=== PATIENT | male | born 1955 | race American Indian/Alaskan Native ===

== ENCOUNTER 2017-09-06 09:55 | Emergency (ER) | payer OTHER ==
[2017-09-06 10:09] VITALS: BMI 25.8
--- NOTE | 2017-09-06 11:13 | PDOC ---
History of Present Illness - General Chief Complaint: Wound Stated Complaint: CHEMICAL EXPOSURE Time Seen by Provider: 09/06/17 10:54 History Source: Patient Exam Limitations: No Limitations - History of Present Illness Initial Comments: This is a 61 YOM who is right hand dominant and with h/o NIDDM, HTN, and HLD who p/w left index finger large blister and diffuse swelling/warmth worsening since a work-related pressurized Freeon chemical exposure at work 3 days ago. The patient described opening a pressurized cannister of Freeon when the chemical came out rapidly and went through his work glove onto the left index finger (and a small amount to the right index finger). He denies tearing of the gloves or skin lacerations, but notes a subsequent mild chemical burn to the dorsal side of his left index finger immediately after the incident. He saw his PCP Dr. Huang on and was prescribed Augmentin PO and Silver Sulfadiazine topical, which he has been using compliantly. He notes mild central chest discomfort and mild mid-back pain, but denies any fever, chills, nausea, vomiting, diarrhea, constipation, additional rashes or skin changes, headache, vision changes, dizziness, etc. Past History - Past Medical History Allergies/Adverse Reactions: Allergies Allergy/AdvReac Type Severity Reaction Status Date / Time No Known Allergies Allergy Verified 09/06/17 10:08 Home Medications: Ambulatory Orders Glipizide [Glipizide ER] 10 mg PO DAILY 04/24/15 Losartan Potassium [Cozaar -] 25 mg PO DAILY 04/24/15 Metformin HCl [Metformin HCl ER] 500 mg PO DAILY 04/24/15 Pantoprazole Sodium [Protonix] 40 mg PO DAILY 04/24/15 Simvastatin [Zocor -] 20 mg PO HS 04/24/15 COPD: No Diabetes: Yes Hypercholesterolemia: Yes - Suicide/Smoking/Psychosocial Hx Smoking History: Never smoked Hx Alcohol Use: No Drug/Substance Use Hx: No Substance Use Type: None *Physical Exam - Vital Signs Last Vital Signs Temp Pulse Resp BP Pulse Ox 98 F 89 18 155/90 99 09/06/17 10:05 09/06/17 10:05 09/06/17 10:05 09/06/17 10:09/06/17 10:05 - Physical Exam General Appearance: Yes: Nourished, Appropriately Dressed, Other (well appearing and nontoxic adult male, answering questions appropriately, son aids in translation). No: Apparent Distress HEENT: positive: EOMI, FARTUN, Normal ENT Inspection, Normal Voice, Hearing Grossly Normal. negative: Scleral Icterus (R), Scleral Icterus (L), Nasal Congestion Neck: positive: Trachea midline, Supple. negative: Tender, Rigid Respiratory/Chest: positive: Lungs Clear, Normal Breath Sounds. negative: Respiratory Distress, Crackles, Rhonchi, Stridor, Wheezing Cardiovascular: positive: Regular Rhythm, Regular Rate, S1, S2. negative: Edema , JVD, Murmur Gastrointestinal/Abdominal: positive: Normal Bowel Sounds, Flat, Soft. negative : Tender, Organomegaly, Pulsatile Mass, Guarding Musculoskeletal: positive: Normal Inspection. negative: Decreased Range of Motion, Vertebral Tenderness Extremity: positive: Normal Capillary Refill, Normal Inspection, Normal Range of Motion. negative: Tender, Cyanosis Integumentary: positive: Normal Color, Dry, Warm, Other (Left index finger very large tense fluid-filled bulla with small amount of drainage from cracks to interdigital space, distal good cap refill and sensation/motor intact). negative: Erythema, Rash, Bruising Neurologic: positive: prototyper II-XII NML intact (grossly), Fully Oriented, Alert, Normal Mood/Affect, Normal Response, Motor Strength 5/5 ED Treatment Course - LABORATORY CBC & Chemistry Diagram: 09/06/17 12:25 09/06/17 12:25 Medical Decision Making - Medical Decision Making Adult patient p/w left non-dominant hand index finger large blister s/p pressurized Freeon exposure 3 days ago. Initial Vital Signs Temp Pulse Resp BP Pulse Ox 98 F 89 18 155/90 99 09/06/17 10:05 09/06/17 10:05 09/06/17 10:05 09/06/17 10:05 09/06/17 10:05 Exam: Left index finger very large tense fluid-filled bulla with small amount of drainage from cracks to interdigital space, distal good cap refill and sensation/motor intact. DDX IBNLT: contact dermatitis, deeper space chemical injury (e.g. from hydrofluoric acid), synovitis, tenosynovitis, other deep space hand infection, necrotizing infection, etc. There is concern for the fact that often Freeon has additive chemicals such as hydrofluoric acid. W/U ordered: CBCD CMP Mg Phos PT/INR PTT Type & Screen Cardiac panel CXR EXR TX ordered: None EKG: CXR: Labs: CT: Repeat VS: Reassessment: ADMIT The Pt is unsafe for discharge at this time. They require further hospital observation, workup, and treatment. Microblog sent to [facility] for admission. Spoke with [facility], in agreement Pt to be admitted to Decision to Admit order placed to [facility] covering attending *DC/Admit/Observation/Transfer Diagnosis at time of Disposition: Chemical burn - Discharge Dispostion Condition at time of disposition: Guarded - Referrals Referrals: Lui Huang MD [Primary Care Provider] - - Patient Instructions - Post Discharge Activity - Transfer to Acute Care Facility Receiving Facility: [facility] Accepting Physician:: Dr. Bonner
[2017-09-06 12:47] LABS: BASO % 0.9 % (0-2.0); EOS % 0.9 % (0-4.5); HEMATOCRIT 50.3 % (35.4-49); HEMOGLOBIN 17.2 GM/dL (11.7-16.9); LYMPH % 23.6 % (8-40); MCH 28.7 pg (25.7-33.7); MCHC 34.2 g/dl (32.0-35.9); MEAN CELL VOLUME 84.1 fl (80-96); MEAN PLT VOLUME 9.7 fl (7.5-11.1); MONO % 6.6 % (3.8-10.2); PLATELET COUNT 243 K/MM3 (134-434); RBC 5.98 M/mm3 (4.00-5.60); RDW 13.4 % (11.9-15.9); WHITE BLOOD COUNT 10.1 K/mm3 (4.0-10.0)
[2017-09-06 13:05] LABS: ALBUMIN 4.2 g/dl (3.4-5.0); ANION GAP 7 (8-16); BLOOD UREA NITROGEN 20 mg/dL (7-18); CALCIUM 9.3 mg/dL (8.5-10.1); CHLORIDE 102 mmol/L (98-107); CO2 28 mmol/L (21-32); GLUCOSE,RANDOM 214 mg/dL (74-106); MAGNESIUM 2.1 mg/dL (1.8-2.4); PHOSPHOROUS 3.8 mg/dL (2.5-4.9); POTASSIUM 4.7 mmol/L (3.5-5.1); SGOT/AST 16 U/L (15-37); SGPT/ALT 34 U/L (12-78); SODIUM 137 mmol/L (136-145)
[2017-09-06 13:09] LABS: ALK PHOS 69 U/L (45-117); BILIRUBIN,TOTAL 0.5 mg/dL (0.2-1.0); TOT PROT 8.3 g/dl (6.4-8.2)
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
[2017-09-06 13:18] LABS: INR 0.97 (0.82-1.09)
[2017-09-06 13:20] LABS: ACTIVATED PTT 31.5 SECONDS (25.2-36.5)
[2017-09-06 15:06] VITALS: BP 126/82; PULSE 79; TEMP 97.7
--- NOTE | 2017-09-06 17:44 | EKG ---
Test Reason : Blood Pressure : / mmHG Vent. Rate : 076 BPM Atrial Rate : 076 BPM P-R Int : 134 ms QRS Dur : 158 ms QT Int : 430 ms P-R-T Axes : 013 112 019 degrees QTc Int : 483 ms NORMAL SINUS RHYTHM RIGHT BUNDLE BRANCH BLOCK LEFT POSTERIOR FASCICULAR BLOCK BIFASCICULAR BLOCK POSSIBLE INFERIOR INFARCT , AGE UNDETERMINED ABNORMAL ECG WHEN COMPARED WITH ECG OF 24-APR-2015 13:09, (RBBB AND LEFT POSTERIOR FASCICULAR BLOCK) IS NOW PRESENT Confirmed by DARVIN AHN, KALPANA ([id number]) on 09/06/2017 5:44:20 PM Referred By: Confirmed By:KALPANA BOSTON MD
== END 2017-09-06 16:30 | disposition short-term general hospital (02) ==
LOC: JER 09:55
DX: T53.5X1A Toxic effect of chlorofluorocarbons, accidental (unintentional), initial encounter (principal); T23.622A Corrosion of second degree of single left finger (nail) except thumb, initial encounter; Y93.89 Activity, other specified; Y92.69 Other specified industrial and construction area as the place of occurrence of the external cause; Y99.0 Civilian activity done for income or pay; I10 Essential (primary) hypertension; E78.00 Pure hypercholesterolemia, unspecified; E11.9 Type 2 diabetes mellitus without complications; Z79.84 Long term (current) use of oral hypoglycemic drugs
CPT/HCPCS: 36415; 71046-TC-FY; 73130-TC-LR-FY; 73140-TC-LT-FY; 80053; 82550; 83735; 84100; 84484; 85025; 85610; 85730; 86850; 86900; 86901; 93005; 93010; 99282-25

== ENCOUNTER 2018-01-08 11:01 | Observation (INO) | payer OTHER ==
[2018-01-08 11:12] VITALS: BMI 27.3
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
[2018-01-08 12:59] LABS: BASO % 0.7 % (0-2.0); EOS % 1.7 % (0-4.5); HEMATOCRIT 49.9 % (35.4-49); HEMOGLOBIN 16.7 GM/dL (11.7-16.9); LYMPH % 27.5 % (8-40); MCH 28.5 pg (25.7-33.7); MCHC 33.4 g/dl (32.0-35.9); MEAN CELL VOLUME 85.2 fl (80-96); MEAN PLT VOLUME 9.3 fl (7.5-11.1); MONO % 6.7 % (3.8-10.2); NEUT % 63.4 % (42.8-82.8); PLATELET COUNT 243 K/MM3 (134-434); RBC 5.86 M/mm3 (4.00-5.60); RDW 13.3 % (11.9-15.9); WHITE BLOOD COUNT 8.6 K/mm3 (4.0-10.0)
[2018-01-08 13:34] LABS: ALBUMIN 4.3 g/dl (3.4-5.0); ALK PHOS 69 U/L (45-117); ANION GAP 4 MMOL/L (8-16); BILIRUBIN,TOTAL 0.4 mg/dL (0.2-1); BLOOD UREA NITROGEN 14 mg/dL (7-18); CALCIUM 9.3 mg/dL (8.5-10.1); CHLORIDE 105 mmol/L (98-107); CO2 31 mmol/L (21-32); GLUCOSE,RANDOM 172 mg/dL (74-106); MAGNESIUM 2.4 mg/dL (1.8-2.4); N-TERMINAL BNP < 5.0 pg/ml (5-125); POTASSIUM 4.9 mmol/L (3.5-5.1); SGOT/AST 11 U/L (15-37); SGPT/ALT 27 U/L (13-61); SODIUM 140 mmol/L (136-145); TOT PROT 8.1 g/dl (6.4-8.2)
--- NOTE | 2018-01-08 15:37 | EKG ---
Test Reason : Blood Pressure : / mmHG Vent. Rate : 081 BPM Atrial Rate : 081 BPM P-R Int : 156 ms QRS Dur : 140 ms QT Int : 402 ms P-R-T Axes : 049 126 048 degrees QTc Int : 466 ms POOR DATA QUALITY, INTERPRETATION MAY BE ADVERSELY AFFECTED NORMAL SINUS RHYTHM RIGHT BUNDLE BRANCH BLOCK LEFT POSTERIOR FASCICULAR BLOCK BIFASCICULAR BLOCK CANNOT RULE OUT INFERIOR INFARCT (CITED ON OR BEFORE 06-SEP-2017) ABNORMAL ECG WHEN COMPARED WITH ECG OF 06-SEP-2017 13:41, QUESTIONABLE CHANGE IN INITIAL FORCES OF INFERIOR LEADS T WAVE INVERSION NO LONGER EVIDENT IN INFERIOR LEADS Confirmed by HANSEL MI MD ([id number]) on 01/08/2018 3:36:59 PM Referred By: Confirmed By:HANSEL MI MD
[2018-01-08] MEDS ORDERED: ASPIRIN 325 MG TABLET PO ONE (16:30)
[2018-01-08] MEDS ORDERED: ASPIRIN 325 MG ENTERIC COATED TABLET (FP) ONE (16:37)
--- NOTE | 2018-01-08 18:25 | PN ---
Teaching Attending Note Name of Resident: Margarita Olson ATTENDING PHYSICIAN STATEMENT I saw and evaluated the patient. I reviewed the resident's note and discussed the case with the resident. I agree with the resident's findings and plan as documented with exceptions below. SUBJECTIVE: 62 yom with PMhx of HTN, HLD, NIDDM, exsmoker comes with intermittent shortness of breath for last 2 weeks, non exertional with no clear exacerbating or relieving factors. patient attributes to the change in the season. On repeat questioning, denies any chest pressure, arm or jaw pain, diaphoresis, dizziness , exertional symptoms. States has seen Dr. Pope in the past with reportedly normal stress test 2 years ago. 12 point ROS done, neg for fevers, chills, cough, exertional chest pain, abdominal or urinary symptoms. OBJECTIVE: Vital Signs Period Temp Pulse Resp BP Sys/Sue Pulse Ox Last 24 Hr 98.0 F 74-75 18-18 126-146/78-89 98-98 Intake & Output 01/05/18 01/06/18 01/07/18 01/08/18 23:59 23:59 23:59 23:59 Weight 180 lb GENERAL: Awake, alert, and fully oriented, in no acute distress. HEAD: Normal with no signs of trauma. EYES: Pupils equal, round and reactive to light, extraocular movements intact, sclera anicteric, conjunctiva clear. No lid lag. EARS, NOSE, THROAT: Ears normal, nares patent, oropharynx clear without exudates. Moist mucous membranes. NECK: Soft, supple, no JVD, normal ROM LUNGS: Breath sounds equal, clear to auscultation bilaterally. No wheezes, and no crackles. No accessory muscle use. HEART: S1S2 regular,unable to appreciate any murmurs, rubs or gallops ABDOMEN: Soft, nontender, not distended, normoactive bowel sounds, no guarding, no rebound, no masses. No hepatomegaly or splenomegaly. MUSCULOSKELETAL: Normal range of motion at all joints. No bony deformities or tenderness. No CVA tenderness. UPPER EXTREMITIES: 2+ pulses, warm, well-perfused. No cyanosis. No clubbing. No peripheral edema. LOWER EXTREMITIES: 2+ pulses, warm, well-perfused. No calf tenderness. No peripheral edema. NEUROLOGICAL: Cranial nerves II-XII intact. Normal speech. Normal gait. power 5 /5, facial symmetry, EOMI, PERRL PSYCHIATRIC: Cooperative. Good eye contact. Appropriate mood and affect. SKIN: Warm, dry, normal turgor, no rashes or lesions noted, normal capillary refill. Home Medications Medication Instructions Recorded Glipizide [Glipizide ER] 10 mg PO DAILY 04/24/15 Losartan Potassium [Cozaar -] 25 mg PO DAILY 04/24/15 Simvastatin [Zocor -] 20 mg PO HS 04/24/15 Canagliflozin [Invokana] 100 mg PO DAILY 01/08/18 Famotidine 20 mg PO DAILY 01/08/18 metFORMIN HCL [Metformin HCl] 500 mg PO DAILY 01/08/18 Laboratory Results - last 24 hr 01/08/18 01/08/18 01/08/18 12:40 12:40 12:40 WBC 8.6 RBC 5.86 H Hgb 16.7 Hct 49.9 H MCV 85.2 MCH 28.5 MCHC 33.4 RDW 13.3 Plt Count 243 MPV 9.3 Absolute Neuts (auto) 5.4 Neutrophils % 63.4 Lymphocytes % 27.5 Monocytes % 6.7 Eosinophils % 1.7 D Basophils % 0.7 Nucleated RBC % 0 D-Dimer < 200 Sodium 140 Potassium 4.9 Chloride 105 Carbon Dioxide 31 Anion Gap 4 L BUN 14 Creatinine 1.0 Creat Clearance w eGFR > 60 Random Glucose 172 H Calcium 9.3 Magnesium 2.4 Total Bilirubin 0.4 AST 11 L ALT 27 Alkaline Phosphatase 69 Troponin I < 0.02 B-Natriuretic Peptide < 5.0 L Total Protein 8.1 Albumin 4.3 01/08/18 16:44 WBC RBC Hgb Hct MCV MCH MCHC RDW Plt Count MPV Absolute Neuts (auto) Neutrophils % Lymphocytes % Monocytes % Eosinophils % Basophils % Nucleated RBC % D-Dimer Sodium Potassium Chloride Carbon Dioxide Anion Gap BUN Creatinine Creat Clearance w eGFR Random Glucose Calcium Magnesium Total Bilirubin AST ALT Alkaline Phosphatase Troponin I < 0.02 B-Natriuretic Peptide Total Protein Albumin CXR - no active pulmonary disease EKG NSR, RBBB, LAFB, unchanged from prior EKG ASSESSMENT AND PLAN: 62 yom with PMHx as above here with intermittent dyspnea for last 2 weeks -Intermittent dyspnea, ?anginal equivalent vs seasonal allergies with mild bronchitis, no clear evidence of infectious process -NIDDM -HTN -HLD -Exsmoker Plan: No clear evidence of infection or pulmonary process. Given risk factors, symptoms, could very well suggest anginal equivalent. Telemetry, cycle troponins. Start ASA 81 mg daily.Check lipid panel. Continue losartan/statin. Cardiology consult Dr. Pope. 2d echo/stress test. Hold metformin. ISS, diabetic diet. DVTPPX lovenox dispo pending cardiac w/u. Plan discussed with patient in detail, all questions answered. total admit time 55 min.
[2018-01-08] MEDS ORDERED: ALBUTEROL SO4 8 GM HFA INHALER IH PRN (18:34)
--- NOTE | 2018-01-08 20:31 | CON.CARD ---
Consult Consult Specialty:: cardiology Reason for Consultation:: chest discomfort; multiple cardiac risks - History of Present Illness Chief Complaint: chest pressure; SOB History of Present Illness: 62-year-old male with a history of [id number]-[id number] diabetes, hyperlipidemia, hypertension, gastric reflux presents to the emergency Department with 2 weeks of progressive sternal non radiating pressure like pain worse in the mornings. Patient reports discomfort that wakes him up from sleep at 4 or 5 AM, lasts for a few hours and gets better on its own. Due to the persistence of the pain, patient called his primary doctor who advised him to come to the ED. Pt reports associated SOB. Denies diaphoresis, N/V/D, rashes, trauma. Denies dizziness, focal weakness/numbness, abd pain, urinary sxs. 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 No hx smoking. - History Source History Provided By: Medical Record - Past Medical History Cardio/Vascular: Yes: HTN - Alcohol/Substance Use Hx Alcohol Use: No - Smoking History Smoking history: Never smoked Home Medications - Allergies Allergies/Adverse Reactions: Allergies Allergy/AdvReac Type Severity Reaction Status Date / Time No Known Allergies Allergy Verified 01/08/18 11:06 - Home Medications Home Medications: Ambulatory Orders Glipizide [Glipizide ER] 10 mg PO DAILY 04/24/15 Losartan Potassium [Cozaar -] 25 mg PO DAILY 04/24/15 Simvastatin [Zocor -] 20 mg PO HS 04/24/15 Canagliflozin [Invokana] 100 mg PO DAILY 01/08/18 Famotidine 20 mg PO DAILY 01/08/18 metFORMIN HCL [Metformin HCl] 500 mg PO DAILY 01/08/18 Review of Systems - Review of Systems Constitutional: reports: No Symptoms Eyes: reports: No Symptoms HENT: reports: No Symptoms Neck: reports: No Symptoms Cardiovascular: reports: Chest Pain, Shortness of Breath Respiratory: reports: SOB Gastrointestinal: reports: No Symptoms Genitourinary: reports: No Symptoms Breasts: reports: No Symptoms Reported Musculoskeletal: reports: No Symptoms Integumentary: reports: No Symptoms Neurological: reports: No Symptoms Endocrine: reports: No Symptoms Hematology/Lymphatic: reports: No Symptoms Psychiatric: reports: No Symptoms Vital Signs: Vital Signs Temperature 98.3 F 01/08/18 16:00 Pulse Rate 68 01/08/18 16:00 Respiratory Rate 17 01/08/18 16:00 Blood Pressure 119/76 01/08/18 16:00 O2 Sat by Pulse Oximetry (%) 100 01/08/18 16:00 - Other Data Labs, Other Data: CBC, BMP 01/08/18 12:40 01/08/18 12:40 Troponin, BNP 01/08/18 01/08/18 12:40 16:44 Troponin I < 0.02 < 0.02 B-Natriuretic Peptide < 5.0 L Troponin, BNP 01/08/18 01/08/18 12:40 16:44 Troponin I < 0.02 < 0.02 B-Natriuretic Peptide < 5.0 L Imaging - Results EKG: Image Reviewed (NSR; RBBB; LAFB: bifascicular block) Problem List - Problems (1) Chest pressure Assessment/Plan: TNI <0.02; f/u serially. EKG: NSR; bifascicular block. ECHO for LVEF, wall motion and thickness, valve status. TSH; lipid profile. Stress MIBI. Code(s): R07.89 - OTHER CHEST PAIN (2) HTN (hypertension) Assessment/Plan: f/u BP serially. Code(s): I10 - ESSENTIAL (PRIMARY) HYPERTENSION (3) Bifascicular block Code(s): I45.2 - BIFASCICULAR BLOCK
--- NOTE | 2018-01-08 20:41 | HP ---
CHIEF COMPLAINT: Chest Pain PCP: Dr. Huang HISTORY OF PRESENT ILLNESS: 62 y/o M with PMHx of NIDDM, HTN, HLD, GERD presents to [facility] with 2 week hx of Chest tightness. patient says he has been waking up many mornings with chest tightness over his entire chest. The chest tightness last for many hours, does not travel to his neck/arm/back, is not reproducible, but does relieve on its own and with changes in position. Patient today called his PCP after an episode of chest pain and was advised to visit the ED. The chest pain is accompanied by SOB. He has not tried any medications to relieve it. He additionally complains of Coughing that he attributes to the weather change. He is unable to identify any other triggers and says its not related to exertion. Patient denies any recent trauma or rashes to the area. Denies any hx of Asthma , COPD or any pulmonary disease. Denies any recent trauma, medication changes, decreased PO intake, decreased urine output or sick contacts. Denies any fevers, chills, nausea vomiting, diarrhea, constipation. 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, [employer] Family History: Mother: HTN, Stroke Father: BPH Allergies No Known Allergies Allergy (Verified 01/08/18 11:06) HOME MEDICATIONS: Home Medications Medication Instructions Recorded Glipizide [Glipizide ER] 10 mg PO DAILY 04/24/15 Losartan Potassium [Cozaar -] 25 mg PO DAILY 04/24/15 Simvastatin [Zocor -] 20 mg PO HS 04/24/15 Canagliflozin [Invokana] 100 mg PO DAILY 01/08/18 Famotidine 20 mg PO DAILY 01/08/18 metFORMIN HCL [Metformin HCl] 500 mg PO DAILY 01/08/18 REVIEW OF SYSTEMS As per HPI PHYSICAL EXAMINATION Vital Signs - 24 hr 01/08/18 01/08/18 01/08/18 11:06 13:49 16:00 Temperature 98.0 F 98.3 F Pulse Rate 74 Pulse Rate [ 75 68 Apical] Respiratory 18 18 17 Rate Blood Pressure 146/89 Blood Pressure 126/78 119/76 [Right Arm] O2 Sat by Pulse 98 98 100 Oximetry (%) GENERAL: A&Ox3, NAD HEAD: NCAT EYES: PERRL, EOMI EARS, NOSE, THROAT: Oropharynx clear without exudates. Moist mucous membranes. NECK: Normal ROM, No JVD LUNGS: Breath sounds equal, clear to auscultation bilaterally. No wheezes HEART: Regular rate and rhythm, normal S1 and S2 without murmur ABDOMEN: Soft, nontender, not distended, + bowel sounds, no guarding MUSCULOSKELETAL: No CVA tenderness. EXTREMITIES: 2+ pulses, No calf tenderness. No peripheral edema. NEUROLOGICAL: Cranial nerves II-XII intact. Normal speech. 5/5 Muscle strength globally. Gross sensation intact b/l. PSYCHIATRIC: Cooperative. Good eye contact. Appropriate mood and affect. SKIN: Warm, dry, no rashes noted, normal capillary refill. Discoloration over his pointer finger (he attributes to a work accident 5 months ago). Laboratory Results - last 24 hr 01/08/18 01/08/18 01/08/18 12:40 12:40 12:40 WBC 8.6 RBC 5.86 H Hgb 16.7 Hct 49.9 H MCV 85.2 MCH 28.5 MCHC 33.4 RDW 13.3 Plt Count 243 MPV 9.3 Absolute Neuts (auto) 5.4 Neutrophils % 63.4 Lymphocytes % 27.5 Monocytes % 6.7 Eosinophils % 1.7 D Basophils % 0.7 Nucleated RBC % 0 D-Dimer < 200 Sodium 140 Potassium 4.9 Chloride 105 Carbon Dioxide 31 Anion Gap 4 L BUN 14 Creatinine 1.0 Creat Clearance w eGFR > 60 Random Glucose 172 H Calcium 9.3 Magnesium 2.4 Total Bilirubin 0.4 AST 11 L ALT 27 Alkaline Phosphatase 69 Troponin I < 0.02 B-Natriuretic Peptide < 5.0 L Total Protein 8.1 Albumin 4.3 01/08/18 16:44 WBC RBC Hgb Hct MCV MCH MCHC RDW Plt Count MPV Absolute Neuts (auto) Neutrophils % Lymphocytes % Monocytes % Eosinophils % Basophils % Nucleated RBC % D-Dimer Sodium Potassium Chloride Carbon Dioxide Anion Gap BUN Creatinine Creat Clearance w eGFR Random Glucose Calcium Magnesium Total Bilirubin AST ALT Alkaline Phosphatase Troponin I < 0.02 B-Natriuretic Peptide Total Protein Albumin Active Medications Albuterol Sulfate (Ventolin Hfa Inhaler -) 2 puff IH Q6H PRN PRN Reason: SHORT OF BREATH/WHEEZING Enoxaparin Sodium (Lovenox -) 40 mg SQ DAILY SUZIE Insulin Aspart (Novolog Vial Sliding Scale -) 0 vial SQ ACHS SUZIE; Protocol Losartan Potassium (Cozaar -) 25 mg PO DAILY SUZIE IMAGING: -CXR: No evidence of active pulmonary disease. -EKG: NORMAL SINUS RHYTHM, RIGHT BUNDLE BRANCH BLOCK, LEFT POSTERIOR FASCICULAR BLOCK, BIFASCICULAR BLOCK, QTc 466 ASSESSMENT/PLAN: 62 y/o M with PMHx of NIDDM, HTN, HLD, GERD presents to [facility] with 2 week hx of Chest tightness will be observed on Tele to r/o ACS 1. Chest Tightness -R/O ACS, Observe on Tele -Trops < 0.02 x2 -EKG, CXR Noted above -Echo, Lexiscan Ordered -Lipid profile, TSH -ASA 81mg daily -Albuterol -Continue home dose Losartan -NPO after midnight -Cardiology (Dr. Napoles) Consulted 2. NIDDM -Hold Oral Hypoglycemics -ISS BGMs ACHS 3. FEN -PO Fluids -Lytes WNL -NPO after midnight for pending stress test 4. PPx -DVT: Lovenox Dispo: Tele-Obs Visit type - Emergency Visit Emergency Visit: Yes ED Registration Date: 01/08/18 Care time: The patient presented to the Emergency Department on the above date and was hospitalized for further evaluation of their emergent condition. - New Patient This patient is new to me today: Yes Date on this admission: 01/08/18 - Critical Care Critical Care patient: No
[2018-01-08] MEDS: INSULIN SLIDING SCALE (NOVOLOG) 1 VIAL SQ SCH (23:03)
[2018-01-09] MEDS: INSULIN SLIDING SCALE (NOVOLOG) 1 VIAL SQ SCH ×2 (06:15→12:42)
[2018-01-09 06:47] LABS: BASO % 0.4 % (0-2.0); EOS % 2.9 % (0-4.5); HEMATOCRIT 49.6 % (35.4-49); HEMOGLOBIN 16.5 GM/dL (11.7-16.9); MCH 28.2 pg (25.7-33.7); MCHC 33.4 g/dl (32.0-35.9); MEAN CELL VOLUME 84.5 fl (80-96); MEAN PLT VOLUME 9.5 fl (7.5-11.1); MONO % 7.8 % (3.8-10.2); NEUT % 60.9 % (42.8-82.8); PLATELET COUNT 217 K/MM3 (134-434); RBC 5.87 M/mm3 (4.00-5.60); RDW 13.3 % (11.9-15.9); WHITE BLOOD COUNT 7.7 K/mm3 (4.0-10.0)
[2018-01-09 06:57] LABS: INR 0.98 (0.83-1.09); PROTHROMBIN TIME (PATIENT) 11.6 SEC (9.7-13.0)
[2018-01-09 07:49] LABS: ANION GAP 9 MMOL/L (8-16); BLOOD UREA NITROGEN 20 mg/dL (7-18); CHLORIDE 104 mmol/L (98-107); CHOLESTEROL 213 mg/dL (50-200); CO2 26 mmol/L (21-32); CREATININE 0.8 mg/dL (0.55-1.3); GLUCOSE,RANDOM 109 mg/dL (74-106); HDL CHOLESTEROL 52 mg/dL (40-60); MAGNESIUM 2.3 mg/dL (1.8-2.4); PHOSPHOROUS 3.9 mg/dL (2.5-4.9); SODIUM 139 mmol/L (136-145); TRIGLYCERIDES 128 mg/dL (0-150)
[2018-01-09] MEDS ORDERED: LOSARTAN POTASSIUM 25 MG TABLET PO ONE (08:57)
[2018-01-09] MEDS ORDERED: LOSARTAN POTASSIUM 25 MG TABLET PO SCH (10:00)
[2018-01-09] MEDS ORDERED: REGADENOSON 0.4 MG/5 ML PRE-FILLED SYRINGE IVPUSH ONE ×2 (10:00→10:33)
[2018-01-09] MEDS ORDERED: ENOXAPARIN NA (PORCINE) 40 MG/0.4 ML DISP.SYRIN SQ SCH (10:00)
--- NOTE | 2018-01-09 10:42 | ECHO ---
Name: SE VALENTINE Exam:Adult Echocardiogram Study Date: 01/09/2018 07:39 AM Age: 62 yrs Reason For Study: ASSESS LV FN Height: 68 in Weight: 185 lb BSA: 2.0 m2 MMode/2D Measurements & Calculations IVSd: 0.99 cm Ao root diam: 3.2 cm LVIDd: 4.4 cm LA dimension: 3.0 cm LVIDs: 2.8 cm ACS: 1.5 cm LVPWd: 0.95 cm IVSs: 1.3 cm LVPWs: 1.1 cm EDV(Teich): 86.8 ml ESV(Teich): 30.3 ml Doppler Measurements & Calculations MV E max minesh: 50.1 cm/sec Ao V2 max: 143.9 cm/sec MV A max minesh: 58.0 cm/sec Ao max P.3 mmHg MV E/A: 0.86 Ao V2 mean: 101.3 cm/sec Ao mean P.7 mmHg Ao V2 VTI: 30.7 cm Med Peak E' Minesh: 5.8 cm/sec Med E/e': 8.7 Lat Peak E' Minesh: 10.0 cm/sec Lat E/e': 5.0 Left Ventricle Left ventricular systolic function is normal. Ejection Fraction = 60-65%. Right Ventricle The right ventricle is normal in size and function. Atria Normal left and right atrial size and function. Mitral Valve The mitral valve is normal in structure and function. There is no mitral valve stenosis. There is mil d mitral regurgitation. Tricuspid Valve The tricuspid valve is not well visualized, but is grossly normal. Aortic Valve There is mild aortic sclerosis.;. No hemodynamically significant valvular aortic stenosis. No aortic regurgitation is present. Pulmonic Valve The pulmonic valve is not well seen, but is grossly normal. There is no pulmonic valvular stenosis. T here is no pulmonic valvular regurgitation. Great Vessels The aortic root is normal size. Pericardium/Pleura There is no pericardial effusion. Interpretation Summary Left ventricular systolic function is normal. Ejection Fraction = 60-65%. The right ventricle is normal in size and function. There is mild mitral regurgitation. There is mild aortic sclerosis.; There is no pericardial effusion. MD Aidan Garcia 01/09/2018 10:41 AM
--- NOTE | 2018-01-09 13:41 | PN ---
Teaching Attending Note Name of Resident: Margarita Olson ATTENDING PHYSICIAN STATEMENT I saw and evaluated the patient. I reviewed the resident's note and discussed the case with the resident. I agree with the resident's findings and plan as documented with exceptions below. SUBJECTIVE: patient seen and examined, no chest pain or dyspnea overnight. OBJECTIVE: Vital Signs Period Temp Pulse Resp BP Sys/Sue Pulse Ox Last 24 Hr 97.7 F-98.3 F 62-75 17-20 109-160/72-100 97-100 Intake & Output 01/06/18 01/07/18 01/08/18 01/09/18 23:59 23:59 23:59 23:59 Weight 180 lb General: sitting in bed in no acute distress Chest: CTAB, no rales or wheezing Abdomen: soft, NT, ND, positive bowel sounds Extremities: no edema Active Medications Albuterol Sulfate (Ventolin Hfa Inhaler -) 2 puff IH Q6H PRN PRN Reason: SHORT OF BREATH/WHEEZING Atorvastatin Calcium (Lipitor -) 40 mg PO HS SUZIE Enoxaparin Sodium (Lovenox -) 40 mg SQ DAILY SUZIE Last Admin: 01/09/18 12:30 Dose: Not Given Insulin Aspart (Novolog Vial Sliding Scale -) 0 vial SQ ACHS [facility]; Protocol Last Admin: 01/09/18 12:42 Dose: Not Given Losartan Potassium (Cozaar -) 50 mg PO DAILY [facility] Laboratory Results - last 24 hr 01/08/18 01/08/18 01/08/18 12:40 16:44 22:29 WBC RBC Hgb Hct MCV MCH MCHC RDW Plt Count MPV Absolute Neuts (auto) Neutrophils % Lymphocytes % Monocytes % Eosinophils % Basophils % Nucleated RBC % PT with INR INR D-Dimer < 200 Sodium Potassium Chloride Carbon Dioxide Anion Gap BUN Creatinine Creat Clearance w eGFR POC Glucometer 171 Random Glucose Calcium Phosphorus Magnesium Troponin I < 0.02 Triglycerides Cholesterol Total LDL Cholesterol HDL Cholesterol TSH 01/08/18 01/09/18 01/09/18 22:45 05:30 05:30 WBC 7.7 RBC 5.87 H Hgb 16.5 Hct 49.6 H MCV 84.5 MCH 28.2 MCHC 33.4 RDW 13.3 Plt Count 217 MPV 9.5 Absolute Neuts (auto) 4.7 Neutrophils % 60.9 Lymphocytes % 28.0 Monocytes % 7.8 Eosinophils % 2.9 Basophils % 0.4 Nucleated RBC % 0 PT with INR 11.60 INR 0.98 D-Dimer Sodium Potassium Chloride Carbon Dioxide Anion Gap BUN Creatinine Creat Clearance w eGFR POC Glucometer Random Glucose Calcium Phosphorus Magnesium Troponin I < 0.02 Triglycerides Cholesterol Total LDL Cholesterol HDL Cholesterol TSH 01/09/18 01/09/18 01/09/18 05:30 05:30 05:30 WBC RBC Hgb Hct MCV MCH MCHC RDW Plt Count MPV Absolute Neuts (auto) Neutrophils % Lymphocytes % Monocytes % Eosinophils % Basophils % Nucleated RBC % PT with INR INR D-Dimer Sodium 139 Potassium 4.0 Chloride 104 Carbon Dioxide 26 Anion Gap 9 BUN 20 H Creatinine 0.8 Creat Clearance w eGFR > 60 POC Glucometer Random Glucose 109 H Calcium 9.0 Phosphorus 3.9 Magnesium 2.3 Troponin I Triglycerides 128 Cancelled Cholesterol 213 H Cancelled Total LDL Cholesterol 155 H Cancelled HDL Cholesterol 52 Cancelled TSH 1.60 01/09/18 01/09/18 05:43 12:35 WBC RBC Hgb Hct MCV MCH MCHC RDW Plt Count MPV Absolute Neuts (auto) Neutrophils % Lymphocytes % Monocytes % Eosinophils % Basophils % Nucleated RBC % PT with INR INR D-Dimer Sodium Potassium Chloride Carbon Dioxide Anion Gap BUN Creatinine Creat Clearance w eGFR POC Glucometer 116 126 Random Glucose Calcium Phosphorus Magnesium Troponin I Triglycerides Cholesterol Total LDL Cholesterol HDL Cholesterol TSH 2D echo/Stress test results reviewed ASSESSMENT AND PLAN: 62 yom with PMHx as above here with intermittent dyspnea for last 2 weeks -Intermittent dyspnea, ?anginal equivalent vs seasonal allergies with mild bronchitis, no clear evidence of infectious process -NIDDM -HTN -HLD -Exsmoker Plan: no events on telemetry Stress test/2D echo negative Lipid panel noted. Change to lipitor 40 mg hs ASA 81 mg daily d/c home today Plan discussed with patient and son at bedside in detail, all questions answered.
--- NOTE | 2018-01-09 14:28 | DS ---
Physical Exam: SUBJECTIVE: Patient seen and examined at bedside this morning. No overnight acute events as per nursing staff. No longer complaining of chest pain. OBJECTIVE: Vital Signs Period Temp Pulse Resp BP Sys/Sue Pulse Ox Last 24 Hr 97.7 F-98.3 F 62-73 17-20 109-160/72-100 97-100 PHYSICAL EXAM GENERAL: A&Ox3, NAD HEAD: NCAT EYES: PERRL, EOMI EARS, NOSE, THROAT: Oropharynx clear without exudates. Moist mucous membranes. NECK: Normal ROM, No JVD LUNGS: Breath sounds equal, clear to auscultation bilaterally. No wheezes HEART: Regular rate and rhythm, normal S1 and S2 without murmur ABDOMEN: Soft, nontender, not distended, + bowel sounds, no guarding MUSCULOSKELETAL: No CVA tenderness. EXTREMITIES: 2+ pulses, No peripheral edema. NEUROLOGICAL: Cranial nerves II-XII intact. Normal speech. 5/5 Muscle strength globally. Gross sensation intact b/l. SKIN: Warm, dry, no rashes noted, normal capillary refill. Discoloration over his pointer finger (he attributes to a work accident 5 months ago). LABS Laboratory Results - last 24 hr 01/08/18 01/08/18 01/08/18 16:44 22:29 22:45 WBC RBC Hgb Hct MCV MCH MCHC RDW Plt Count MPV Absolute Neuts (auto) Neutrophils % Lymphocytes % Monocytes % Eosinophils % Basophils % Nucleated RBC % PT with INR INR Sodium Potassium Chloride Carbon Dioxide Anion Gap BUN Creatinine Creat Clearance w eGFR POC Glucometer 171 Random Glucose Calcium Phosphorus Magnesium Troponin I < 0.02 < 0.02 Triglycerides Cholesterol Total LDL Cholesterol HDL Cholesterol TSH 01/09/18 01/09/18 01/09/18 05:30 05:30 05:30 WBC 7.7 RBC 5.87 H Hgb 16.5 Hct 49.6 H MCV 84.5 MCH 28.2 MCHC 33.4 RDW 13.3 Plt Count 217 MPV 9.5 Absolute Neuts (auto) 4.7 Neutrophils % 60.9 Lymphocytes % 28.0 Monocytes % 7.8 Eosinophils % 2.9 Basophils % 0.4 Nucleated RBC % 0 PT with INR 11.60 INR 0.98 Sodium 139 Potassium 4.0 Chloride 104 Carbon Dioxide 26 Anion Gap 9 BUN 20 H Creatinine 0.8 Creat Clearance w eGFR > 60 POC Glucometer Random Glucose 109 H Calcium 9.0 Phosphorus 3.9 Magnesium 2.3 Troponin I Triglycerides 128 Cholesterol 213 H Total LDL Cholesterol 155 H HDL Cholesterol 52 TSH 01/09/18 01/09/18 01/09/18 05:30 05:30 05:43 WBC RBC Hgb Hct MCV MCH MCHC RDW Plt Count MPV Absolute Neuts (auto) Neutrophils % Lymphocytes % Monocytes % Eosinophils % Basophils % Nucleated RBC % PT with INR INR Sodium Potassium Chloride Carbon Dioxide Anion Gap BUN Creatinine Creat Clearance w eGFR POC Glucometer 116 Random Glucose Calcium Phosphorus Magnesium Troponin I Triglycerides Cancelled Cholesterol Cancelled Total LDL Cholesterol Cancelled HDL Cholesterol Cancelled TSH 1.60 01/09/18 12:35 WBC RBC Hgb Hct MCV MCH MCHC RDW Plt Count MPV Absolute Neuts (auto) Neutrophils % Lymphocytes % Monocytes % Eosinophils % Basophils % Nucleated RBC % PT with INR INR Sodium Potassium Chloride Carbon Dioxide Anion Gap BUN Creatinine Creat Clearance w eGFR POC Glucometer 126 Random Glucose Calcium Phosphorus Magnesium Troponin I Triglycerides Cholesterol Total LDL Cholesterol HDL Cholesterol TSH IMAGING: -CXR: No evidence of active pulmonary disease. -EKG: NORMAL SINUS RHYTHM, RIGHT BUNDLE BRANCH BLOCK, LEFT POSTERIOR FASCICULAR BLOCK, BIFASCICULAR BLOCK, QTc 466 -ECHO: EF= 60-65%. LV systolic function is normal. Mild MR. No pericardial effusion -GATED STRESS PHARMACOLOGICAL (Lexiscan) MYOVIEW PERFUSION SCAN: EXERCISE RESULTS--No significant ECG changes during Lexiscan infusion. NUCLEAR RESULTS-- No evidence of ischemia. LVEF 70%. No evidence of transient ischemic dilatation. HOSPITAL COURSE: Date of Admission:01/08/18 Date of Discharge: 01/09/18 62 y/o M with PMHx of NIDDM, HTN, HLD, GERD presented to [facility] with 2 week hx of Chest tightness and was observed on Tele to r/o ACS. Trops < 0.02 x2. Cardiology was consulted and suggested Echo and Stress MIBI. His Echo and Lexiscan were not suggestive of Ischemia (noted above). Lipid profile revealed Cholesterol 213 and LDL 155. TSH wnl. Patient was discharged home on Lipitor 40mg and ASA 81mg, with strict instructions to follow up with is PCP. Minutes to complete discharge: 40 Discharge Summary Reason For Visit: CHEST PAIN,SOB Current Active Problems Bifascicular block (Acute) Chest pressure (Acute) HTN (hypertension) (Acute) SOB (shortness of breath) (Acute) Condition: Stable - Instructions Diet, Activity, Other Instructions: You were observed in the hospital for chest pain. Your troponin (Cardiac enzyme ) level was normal. Your Echocardiogram (ultrasound of the heart) and Stress tests which were negative for concerns. Your lipid profile showed a high cholesterol and high LDL. You are being discharged on Lipitor 40mg daily. Please stop taking simvastatin and follow up with your primary care doctor. If you experience any muscle or joint pains especially in your arms or legs, headaches, diarrhea or nausea, please stop taking Lipitor and contact your primary doctor. You are also being discharged on Aspirin 81mg daily If you have muscle aches after starting the new medication please report to your primary care doctor. Please follow up with your primary care physician in one week. Continue all your other medications as prescribed Please call 911 or return to the ER if you have any signs or symptoms of chest pain, shortness of breath, uncontrollable fever, chills, nausea, vomiting, numbness, tingling, or weakness in any part of your body, changes in vision, or slurred speech. Please return to the ER if symptoms persist, worsen, or new symptoms arise. Referrals: Lui Huang MD [Primary Care Provider] - Disposition: HOME - Home Medications Comprehensive Discharge Medication List: Ambulatory Orders Glipizide [Glipizide ER] 10 mg PO DAILY 04/24/15 Losartan Potassium [Cozaar -] 25 mg PO DAILY 04/24/15 Canagliflozin [Invokana] 100 mg PO DAILY 01/08/18 Famotidine 20 mg PO DAILY 01/08/18 metFORMIN HCL [Metformin HCl] 500 mg PO BID 01/08/18 Aspirin [ASA -] 81 mg PO DAILY #30 tab.chew 01/09/18 Atorvastatin Ca [Lipitor] 40 mg PO HS #30 tablet 01/09/18 This patient is new to me today: No Emergency Visit: Yes ED Registration Date: 01/08/18 Care time: The patient presented to the Emergency Department on the above date and was hospitalized for further evaluation of their emergent condition. Critical Care patient: No - Discharge Referral Referred to [facility] No
[2018-01-09 14:51] VITALS: BP 132/81; PULSE 92; TEMP 98.2
[2018-01-09] MEDS ORDERED: ATORVASTATIN CA 40 MG TABLET (FP) PO SCH (22:00)
[2018-01-10] MEDS ORDERED: LOSARTAN POTASSIUM 50 MG TABLET (FP) PO SCH (10:00)
== END 2018-01-09 16:48 | disposition home or self-care (01) ==
LOC: JER 11:01 → JERBED 16:35 → J4W 22:57
PROVIDERS: ADMIT Hospitalist; ATTEND Hospitalist
PROC: 3E033GC Introduction of Other Therapeutic Substance into Peripheral Vein, Percutaneous Approach (ICD-10-PCS; principal; 2018-01-08)
DX: R07.89 Other chest pain (principal); R06.02 Shortness of breath; I45.2 Bifascicular block; I10 Essential (primary) hypertension; E78.5 Hyperlipidemia, unspecified; E11.9 Type 2 diabetes mellitus without complications; K21.9 Gastro-esophageal reflux disease without esophagitis; Z87.891 Personal history of nicotine dependence; Z79.84 Long term (current) use of oral hypoglycemic drugs
CPT/HCPCS: 36415; 71046-TC-FY; 78452-TC; 80048; 80053; 80061; 82962; 83721; 83735; 83880; 84100; 84443; 84484; 85025; 85379; 85610; 93005; 93010; 93017; 93306-TC; 96374; 99285-25; A9502; G0378; J2785

== ENCOUNTER 2021-05-10 05:06 | Day surgery (SDC) | payer OTHER ==
[2021-05-07 14:32] VITALS: BMI 27.1
[2021-05-10 13:43] VITALS: PULSE 73; TEMP 97.1
[2021-05-10 14:15] VITALS: BP 127/72
== END 2021-05-10 14:15 | disposition home or self-care (01) ==
LOC: JASU-ENDO 05:06
PROVIDERS: ATTEND Internal Medicine Gastroenterology
PROC: 0DJD8ZZ Inspection of Lower Intestinal Tract, Via Natural or Artificial Opening Endoscopic (ICD-10-PCS; principal; 2021-05-10 13:00)
DX: Z12.11 Encounter for screening for malignant neoplasm of colon (principal); R19.5 Other fecal abnormalities; E11.9 Type 2 diabetes mellitus without complications; Z79.84 Long term (current) use of oral hypoglycemic drugs